=== PATIENT | female | born 1955 | race Caucasian/White ===

== ENCOUNTER 2019-04-02 08:10 | Day surgery (SDC) | payer OTHER ==
[~2019-04-02] VITALS: Ht 154.9 cm; Wt 83.3 kg
[2019-04-02] MEDS ORDERED: LISI-471 PO (09:10)
[2019-04-02] MEDS ORDERED: OMEP40CA6 PO (09:10)
[2019-04-02 09:13] VITALS: BP 127/73; PULSE 75; RESP 18
[2019-04-02 09:14] VITALS: Ht 154.9 cm; Wt 83.3 kg
--- NOTE | 2019-04-02 09:20 | PREAC ---
Date/Time of Note Date/Time of Note DATE: 04/02/19 TIME: 09:18 Anesthesia Eval and Record Evaluation Time Pre-Procedure Interview DATE: 04/02/19 TIME: 09:18 Age 64 Sex female NPO: 8 hrs Preoperative diagnosis gerd and screening Planned procedure egd and colonoscopy Past Medical History Past Medical History: Includes Cardio: HTN Endo: Diabetes Renal: CKD GI: GERD, Hiatal hernia Surgery & Anesthesia Issues No known issue Meds Anticoagulation: No Beta Baron within 24 hr: No Reason Beta Baron not given: Pt. not on B-Baron Reported Medications Lisinopril* (Lisinopril*) 20 Mg Tablet, 20 MG PO DAILY, #30 TAB 04/02/19 Omeprazole* (Omeprazole*) 40 Mg Capsule.dr, 40 MG PO DAILY, #30 CAP 04/02/19 Meds reviewed: Yes Allergies Coded Allergies: No Known Allergy (Unverified , 04/02/19) Allergies Reviewed: Yes Labs/Studies Labs Reviewed: Reviewed by anesthesiologist test: N/A Pre-procedure Exam Last vitals Vital Signs Date Temp Pulse Resp B/P (MAP) Pulse Ox O2 O2 Flow FiO2 Time Delivery Rate 04/02/19 98.6 75 18 127/73 98 Room Air 09:13 (91) Airway: Adequate mouth opening, Adequate thyromental dist Mallampati: Mallampati III Teeth: Normal Lung: Normal Heart: Normal ASA Physical Status ASA physical status: 3 Emergency: None Pre-operative Attestations Prior to commencing anesthesia and surgery, the patient was re-evaluated, there was verification of: *The patient's identity *The results of appropriate recent lab work and preoperative vital signs *The above evaluation not changing prior to induction *Anesthetic plan, risk benefits, alternative and complications discussed with patient/family; questions answered; patient/family understands, accepts and wishes to proceed. PAUL ENGLISH DO Apr 02, 2019 09:20
[2019-04-02] MEDS ORDERED: PROPOFOL 20 ML ONE (09:22)
[2019-04-02] MEDS ORDERED: LIDOCAINE 2% (SDV) 5 ML INJ ONE (09:22)
[2019-04-02] MEDS ORDERED: LIDOCAINE 4% SOLUTION 50 ML BTL ONE (09:23)
[2019-04-02] MEDS ORDERED: ETOMIDATE 20 MG INJ ONE (09:23)
[2019-04-02] MEDS ORDERED: MIDAZOLAM 1 MG/ML 2 ML INJ ONE (09:23)
[2019-04-02] MEDS ORDERED: FENTAnyl 50 MCG/ML VIAL ONE (09:23)
[2019-04-02 10:00] VITALS: BP 103/63; PULSE 68; RESP 20
[2019-04-02 10:05] VITALS: BP 106/67; PULSE 64; RESP 20
[2019-04-02 10:10] VITALS: BP 107/66; PULSE 69; RESP 20
[2019-04-02 10:20] VITALS: BP 109/70; PULSE 67; RESP 20
--- NOTE | 2019-04-02 10:44 | PAC ---
Date/Time of Note Date/Time of Note DATE: 04/02/19 TIME: 10:43 Post-Anesthesia Notes Post-Anesthesia Note Last documented vital signs Vital Signs Date Temp Pulse Resp B/P (MAP) Pulse Ox O2 O2 Flow FiO2 Time Delivery Rate 04/02/19 98 79 20 125/80 98 Room Air 1044 Activity: WNL Respiratory function: WNL Cardiovascular function: WNL Mental status: Baseline Pain reasonably controlled: Yes Hydration appropriate: Yes Nausea/Vomiting absent: Yes PAUL ENGLISH DO Apr 02, 2019 10:44
== END 2019-04-02 15:09 | disposition home or self-care (01) ==
LOC: GIL 08:10
PROVIDERS: ATTEND Internal Medicine Gastroenterology
DX: Z12.11 Encounter for screening for malignant neoplasm of colon (principal); K64.8 Other hemorrhoids; D12.3 Benign neoplasm of transverse colon; K29.50 Unspecified chronic gastritis without bleeding; I12.9 Hypertensive chronic kidney disease with stage 1 through stage 4 chronic kidney disease, or unspecified chronic kidney disease; N18.9 Chronic kidney disease, unspecified; E11.9 Type 2 diabetes mellitus without complications
CPT/HCPCS: 43239; 45380; 88305; 88312; J2250; J3010; Z7610